=== PATIENT | female | born 1995 | race Caucasian/White ===

== ENCOUNTER → 2017-01-05 | Outpatient (REF) | payer BC ==
[~2017-01-05] MED LIST: /PANT40TA; KARIVA; MIRCETTE PO
== END ==
LOC: M SFHCWAGY 11:30
PROVIDERS: ATTEND Nurse Practitioner Women's Health
DX: Z12.4 Encounter for screening for malignant neoplasm of cervix (principal)

== ENCOUNTER → 2017-02-23 | Outpatient (REF) | payer BC | LOC: M LAB REF 12:17 | PROVIDERS: ATTEND Physician Assistant | DX: N39.0 Urinary tract infection, site not specified (principal) ==

== ENCOUNTER → 2018-04-16 | Outpatient (REF) | payer BC | LOC: M SFHCWAGY 08:52 | DX: Z12.4 Encounter for screening for malignant neoplasm of cervix (principal) | CPT/HCPCS: G0123 ==

== ENCOUNTER → 2019-03-13 | Outpatient (CLI) | payer BC ==
[~2019-03-13] MED LIST changes: -/PANT40TA; +PROT1TAB2
[2019-03-13 13:27] LABS: BASO % 0.4 % (0.0-1.0); EOS # 0.1 10^3/uL (0.0-0.50); EOS % 1.2 % (0.0-3.0); LYMPH # 1.5 10^3/uL (1.5-6.5); LYMPH % 19.6 % (24.0-44.0); MEAN CORPUSCULAR HGB CONC 32.5 g/dl (32.0-36.5); MEAN CORPUSCULAR VOLUME 92.2 fl (80.0-96.0); MONO # 0.5 10^3/uL (0.0-0.8); MONO % 6.5 % (0.0-5.0); NEUTROPHILS # 5.5 10^3/uL (1.8-7.7); NEUTROPHILS % 71.9 % (36.0-66.0); PLATELET COUNT, AUTOMATED 207 10^3/uL (150-450); RED BLOOD COUNT 4.34 10^6/uL (4.00-5.40); WHITE BLOOD COUNT 7.7 10^3/uL (4.0-10.0)
[2019-03-13 13:38] LABS: ALBUMIN 3.3 GM/DL (3.2-5.2); ALT/SGPT 18 U/L (12-78); BILIRUBIN,TOTAL 0.1 MG/DL (0.2-1.0); BLOOD UREA NITROGEN 10 MG/DL (7-18); CALCIUM LEVEL 9.1 MG/DL (8.5-10.1); CARBON DIOXIDE LEVEL 24 MEQ/L (21-32); CHLORIDE LEVEL 109 MEQ/L (98-107); CREATININE FOR GFR 0.75 MG/DL (0.55-1.30); FREE T4 0.93 NG/DL (0.76-1.46); GLOMERULAR FILTRATION RATE > 60.0 (>60); GLUCOSE, FASTING 88 MG/DL (70-100); POTASSIUM SERUM 3.9 MEQ/L (3.5-5.1); SODIUM LEVEL 141 MEQ/L (136-145); TOTAL PROTEIN 6.6 GM/DL (6.4-8.2)
[2019-03-15 00:08] LABS: EBV VIRAL CAPSID AG IgG 55.3 U/mL (0.0-17.9); EBV VIRAL CAPSID AG IgM <36.0 U/mL (0.0-35.9)
== END ==
LOC: M WUC 10:59
PROVIDERS: ATTEND Physician Assistant
DX: R53.83 Other fatigue (principal)

== ENCOUNTER → 2019-03-29 | Outpatient (CLI) | payer BC ==
[2019-03-29 08:06] LABS: HEMOGLOBIN 13.9 g/dl (12.0-15.5); MEAN CORPUSCULAR HEMOGLOBIN 30.1 pg (27.0-33.0); MEAN CORPUSCULAR HGB CONC 33.1 g/dl (32.0-36.5); MEAN CORPUSCULAR VOLUME 90.9 fl (80.0-96.0); PLATELET COUNT, AUTOMATED 211 10^3/uL (150-450); RED BLOOD COUNT 4.62 10^6/uL (4.00-5.40); WHITE BLOOD COUNT 5.6 10^3/uL (4.0-10.0)
--- NOTE | 2019-03-29 08:18 | REP ---
Clinical: Chest pain with anemia and fatigue . Comparison: None . Technique: PA and lateral. Findings: The mediastinum and cardiac silhouette are normal. The lung cotto are clear and without acute consolidation, effusion, or pneumothorax. The skeletal structures are intact and normal. Impression: 1. No acute cardiopulmonary process. Electronically Signed by Flaco Bird MD 03/29/2019 08:10 A
[2019-03-29 08:46] LABS: ALBUMIN 3.3 GM/DL (3.2-5.2); ALT/SGPT 23 U/L (12-78); BILIRUBIN,TOTAL 0.3 MG/DL (0.2-1.0); BLOOD UREA NITROGEN 12 MG/DL (7-18); CALCIUM LEVEL 9.3 MG/DL (8.5-10.1); CARBON DIOXIDE LEVEL 27 MEQ/L (21-32); CHLORIDE LEVEL 106 MEQ/L (98-107); CHOLESTEROL LEVEL 168 MG/DL (<200); CHOLESTEROL RISK RATIO 3.169 (<5); CREATININE FOR GFR 0.76 MG/DL (0.55-1.30); GLOMERULAR FILTRATION RATE > 60.0 (>60); GLUCOSE, FASTING 85 MG/DL (70-100); HDL CHOLESTEROL 53 MG/DL (>40); LDL CHOLESTEROL 70 MG/DL (<100); NON-HDL-C 115 MG/DL; POTASSIUM SERUM 4.4 MEQ/L (3.5-5.1); SODIUM LEVEL 139 MEQ/L (136-145); TOTAL PROTEIN 6.6 GM/DL (6.4-8.2); TRIGLYCERIDES LEVEL 227 MG/DL (<150)
[2019-03-29 09:57] LABS: HEMOGLOBIN A1c 4.8 %
[2019-03-29 11:17] LABS: TOTAL 25(OH) VITAMIN D 34.7 NG/ML (30.0-100.0)
[2019-03-29 11:18] LABS: TOTAL T3 182.7 NG/DL (60.0-181.0)
--- NOTE | 2019-03-29 19:20 | ECGEPIP ---
[facility] Test Date: 2019-03-29 Pat Name: SAMMY PELAYO Department: Room: - Gender: Female [employer]: EL : 1995 Requested By: Anita Carranza Order Number: [id number] Reading MD: Jonathan Kauffman Measurements Intervals [place] Rate: 84 P: 4 KS: 154 QRS: 52 QRSD: 97 T: 30 QT: 351 QTc: 415 Interpretive Statements SINUS RHYTHM WITH SINUS ARRHYTHMIA Within normal limits Electronically Signed on 03-29-2019 19:20:29 EDT by Jonathan Kauffman
== END ==
LOC: M LAB 07:22
PROVIDERS: ATTEND Family Medicine
DX: R53.83 Other fatigue (principal); D64.9 Anemia, unspecified; E03.9 Hypothyroidism, unspecified

== ENCOUNTER → 2019-04-30 | Outpatient (REF) | payer BC | LOC: M LAB REF 15:03 | PROVIDERS: ATTEND Nurse Practitioner Family | DX: J02.9 Acute pharyngitis, unspecified (principal) ==

== ENCOUNTER → 2019-05-15 | Outpatient (CLI) | payer BC ==
--- NOTE | 2019-05-15 18:22 | REP ---
Clinical: Pelvic pain. Technique: Transabdominal pelvic ultrasound followed by transvaginal examination for better evaluation of the endometrium and adnexa with color Doppler evaluation of the ovaries. Findings: Bladder is unremarkable and measures 8.9 x 9.0 x 5.3 cm. Normal retroflexed uterus measures 6.9 x 2.6 x 3.7 cm. Endometrial complex measures 4 mm thickness. No discrete uterine or endometrial abnormalities appreciated. Trace fluid in the endocervical canal is nonspecific and likely physiologic. Bilateral ovaries are normal in appearance and echogenicity without torsion. Right ovary measures 3.2 x 1.4 x 1.6 cm (RI 0.53). Left ovary measures 3.9 x 1.5 x 1.8 cm (RI 0.58). Small amount of free fluid in the pelvis likely physiologic. Impression: Essentially normal pelvic ultrasound. Electronically Signed by Flaco Bird MD 05/15/2019 06:14 P
== END ==
LOC: M RAD 15:29
PROVIDERS: ATTEND Nurse Practitioner Women's Health
DX: R10.2 Pelvic and perineal pain (principal); Z87.42 Personal history of other diseases of the female genital tract

== ENCOUNTER → 2020-03-26 | Outpatient (CLI) | payer BC ==
[2020-03-26 12:55] LABS: HEMATOCRIT 40.6 % (36.0-47.0); HEMOGLOBIN 13.7 g/dl (12.0-15.5); MEAN CORPUSCULAR HEMOGLOBIN 30.2 pg (27.0-33.0); MEAN CORPUSCULAR HGB CONC 33.7 g/dl (32.0-36.5); MEAN CORPUSCULAR VOLUME 89.4 fl (80.0-96.0); PLATELET COUNT, AUTOMATED 222 10^3/uL (150-450); RED BLOOD COUNT 4.54 10^6/uL (4.00-5.40); WHITE BLOOD COUNT 7.8 10^3/uL (4.0-10.0)
[2020-03-26 13:08] LABS: PROTHROMBIN TIME 13.4 SECONDS (11.8-14.0)
[2020-03-26 13:24] LABS: ERYTHROCYTE SEDIMENTATION RATE 4 mm/hr (0-20)
[2020-03-26 13:43] LABS: ALT/SGPT 26 U/L (12-78); BLOOD UREA NITROGEN 11 MG/DL (7-18); CALCIUM LEVEL 9.5 MG/DL (8.5-10.1); CARBON DIOXIDE LEVEL 25 MEQ/L (21-32); CHLORIDE LEVEL 106 MEQ/L (98-107); CREATININE FOR GFR 0.78 MG/DL (0.55-1.30); GLOMERULAR FILTRATION RATE > 60.0 (>60); GLUCOSE, FASTING 77 MG/DL (70-100); POTASSIUM SERUM 4.3 MEQ/L (3.5-5.1); SODIUM LEVEL 138 MEQ/L (136-145)
[2020-03-26 13:44] LABS: ALBUMIN 3.5 GM/DL (3.2-5.2); BILIRUBIN,TOTAL 0.4 MG/DL (0.2-1.0); CHOLESTEROL LEVEL 157 MG/DL (<200); HDL CHOLESTEROL 48 MG/DL (>40); LDL CHOLESTEROL 71 MG/DL (<100); NON-HDL-C 109 MG/DL; RHEUMATOID FACTOR QUANT < 10.0 IU/ML (<15.0); THYROXINE (T4) 13.8 UG/DL (4.5-12.0); TOTAL 25(OH) VITAMIN D 42.3 NG/ML (30.0-100.0); TOTAL PROTEIN 7.2 GM/DL (6.4-8.2); TOTAL T3 184.2 NG/DL (60.0-181.0); TRIGLYCERIDES LEVEL 190 MG/DL (<150)
[2020-03-26 18:02] LABS: HEMOGLOBIN A1c 5.2 %
[2020-03-27 14:11] LABS: Lyme Disease IgG/IgM Antibodie <0.91 ISR (0.00-0.90); Lyme Disease IgM Ab Quantitati <0.80 index (0.00-0.79)
== END ==
LOC: M LAB 11:58
PROVIDERS: ATTEND Family Medicine
DX: D64.9 Anemia, unspecified (principal); R53.83 Other fatigue; E03.9 Hypothyroidism, unspecified

== ENCOUNTER 2021-07-30 20:38 | Emergency (ER) | payer BC ==
[~2021-07-30] VITALS: Ht 157.5 cm; Wt 90.9 kg
[2021-07-30 20:43] VITALS: BP 124/65
== END 2021-07-31 05:07 | disposition left against medical advice (07) ==
LOC: M ED 20:38
DX: Z53.29 Procedure and treatment not carried out because of patient's decision for other reasons (principal)

== ENCOUNTER → 2021-11-29 | Outpatient (REF) | payer BC | LOC: M PLALAB 10:12 | PROVIDERS: ATTEND Advanced Practice Midwife | DX: Z12.4 Encounter for screening for malignant neoplasm of cervix (principal); R87.610 Atypical squamous cells of undetermined significance on cytologic smear of cervix (ASC-US) | CPT/HCPCS: 87624; G0123 ==

== ENCOUNTER → 2021-11-29 | Outpatient (CLI) | payer BC | LOC: M PLALAB 11:09 | PROVIDERS: ATTEND Advanced Practice Midwife | DX: Z84.81 Family history of carrier of genetic disease (principal) ==

== ENCOUNTER → 2022-01-22 | Outpatient (REF) | payer BC | LOC: M WUC 18:15 | PROVIDERS: ATTEND Physician Assistant | DX: J04.0 Acute laryngitis (principal) ==

== ENCOUNTER → 2024-10-21 | Outpatient (CLI) | payer BC ==
[2024-10-21 11:07] LABS: HEMATOCRIT 41.1 % (36.0-47.0); HEMOGLOBIN 13.8 g/dl (12.0-15.5); MEAN CORPUSCULAR HEMOGLOBIN 29.7 pg (27.0-33.0); MEAN CORPUSCULAR HGB CONC 33.6 g/dl (32.0-36.5); MEAN CORPUSCULAR VOLUME 88.4 fl (80.0-96.0); PLATELET COUNT, AUTOMATED 267 10^3/uL (150-450); RED BLOOD COUNT 4.65 10^6/uL (4.00-5.40); WHITE BLOOD COUNT 7.8 10^3/uL (4.0-10.0)
[2024-10-21 11:21] LABS: HEMOGLOBIN A1c 4.8 % (4.0-6.0)
[2024-10-21 11:44] LABS: THYROID STIMULATING HORMONE 2.418 uIU/ML (0.55-4.78)
[2024-10-21 11:45] LABS: ALBUMIN 3.2 G/DL (3.2-5.2); ALKALINE PHOSPHATASE 82 U/L (35-104); ALT/SGPT 30 U/L (7.0-40); AST/SGOT 26 U/L (<34); BILIRUBIN,TOTAL 0.3 MG/DL (0.3-1.2); BLOOD UREA NITROGEN 11 MG/DL (9-23); CALCIUM LEVEL 9.2 MG/DL (8.5-10.1); CARBON DIOXIDE LEVEL 21 MMOL/L (20-31); CHLORIDE LEVEL 111 MMOL/L (98-107); CHOLESTEROL LEVEL 156 MG/DL (<200); CHOLESTEROL RISK RATIO 4.23 (<5); CREATININE FOR GFR 0.74 MG/DL (0.55-1.30); GLOMERULAR FILTRATION RATE > 60.0 (>60); GLUCOSE, FASTING 88 MG/DL (60-100); HDL CHOLESTEROL 36.8 MG/DL (>40); LDL CHOLESTEROL 77.6 MG/DL (<100); NON-HDL-C 119.2 MG/DL; POTASSIUM SERUM 4.5 MMOL/L (3.5-5.1); SODIUM LEVEL 139 MMOL/L (136-145); TOTAL PROTEIN 6.6 G/DL (5.7-8.2); TRIGLYCERIDES LEVEL 208 MG/DL (<150)
[2024-10-21 11:47] LABS: TOTAL 25(OH) VITAMIN D 60.7 NG/ML (20.0-100.0)
== END ==
LOC: M RAD 10:13
PROVIDERS: ATTEND Family Medicine
DX: M54.30 Sciatica, unspecified side (principal); R53.83 Other fatigue; E03.9 Hypothyroidism, unspecified; I10 Essential (primary) hypertension

== ENCOUNTER → 2024-10-29 | Outpatient (REF) | payer BC | LOC: M SFHCWAGY 14:54 | PROVIDERS: ATTEND Advanced Practice Midwife | DX: Z12.4 Encounter for screening for malignant neoplasm of cervix (principal); R87.615 Unsatisfactory cytologic smear of cervix | CPT/HCPCS: 87624; G0123 ==

== ENCOUNTER → 2025-03-05 | Outpatient (CLI) | payer BC ==
[2025-03-05 14:46] LABS: CHOLESTEROL LEVEL 150.0 MG/DL (<200); CHOLESTEROL RISK RATIO 3.59 (<5); LDL CHOLESTEROL 70.1 MG/DL (<100); NON-HDL-C 108.3 MG/DL; TRIGLYCERIDES LEVEL 191.0 MG/DL (<150)
[2025-03-09 00:22] LABS: ANTI THROMBIN 3 FUNCT ACTIVITY 116 % normal (80-135); PROTEIN C FUNCTIONAL ACTIVITY 136 % normal (70-180); PROTEIN S FUNCTIONAL ACTIVITY 125 % normal (60-140)
[2025-03-12 00:32] LABS: Anticardiolipin Ab, IGG < 2.0 GPL-U/mL (<20.0); Anticardiolipin Ab, IGM < 2.0 MPL-U/mL (<20.0); Anticardiolipin Ab, IgA 2.0 APL-U/mL (<20.0); Beta-2 GLYCOPROTEIN I, IGG < 2.0 U/mL (<20.0); Beta-2 Glycoprotein I, IGA < 2.0 U/mL (<20.0); Beta-2 Glycoprotein I, IGM < 2.0 U/mL (<20.0)
[2025-03-13 08:32] LABS: APTT APSCOMP 46 sec (<=40); DRVTT Screen Seconds 58 sec (<=45)
[2025-03-13 20:01] LABS: FACTOR V LEIDEN FOR MEDINET NEGATIVE
== END ==
LOC: M WUC 11:27
PROVIDERS: ATTEND Internal Medicine
DX: I82.622 Acute embolism and thrombosis of deep veins of left upper extremity (principal); E66.01 Morbid (severe) obesity due to excess calories

== ENCOUNTER → 2025-03-26 | Outpatient (POV) | payer BC | LOC: M IRPOV 14:29 | PROVIDERS: ATTEND Registered Nurse School | DX: I82.B12 Acute embolism and thrombosis of left subclavian vein (principal); Z79.01 Long term (current) use of anticoagulants ==

== ENCOUNTER → 2025-04-08 | Outpatient (CLI) | payer BC ==
[~2025-04-08] MED LIST changes: +ISOVUE-370 76% 100 ML VIAL As Ordered ONE
== END ==
LOC: M RAD 07:51
PROVIDERS: ATTEND Radiology Diagnostic Radiology
DX: G54.0 Brachial plexus disorders (principal)

== ENCOUNTER → 2025-04-16 | Outpatient (POV) | payer BC ==
[~2025-04-16] VITALS: Ht 157.5 cm; Wt 97.7 kg
[~2025-04-16] MED LIST changes: +ELIQ5TAB PO; -ISOVUE-370 76% 100 ML VIAL As Ordered ONE; +PHEN15CA6 PO
[2025-04-16 08:30] VITALS: BP 108/62; O2SAT 98
== END ==
LOC: M IRPOV 07:57
PROVIDERS: ATTEND Thoracic Surgery (Cardiothoracic Vascular Surgery)
DX: G54.0 Brachial plexus disorders (principal); Z79.01 Long term (current) use of anticoagulants

== ENCOUNTER 2025-06-02 12:38 | Emergency (ER) | payer BC ==
[~2025-06-02] VITALS: Ht 157.5 cm; Wt 93.6 kg
[2025-06-02 12:43] VITALS: BP 121/74; O2SAT 99
[2025-06-02] MEDS ORDERED: DEBL1TAB (13:02)
[2025-06-02 17:33] LABS: BASO # 0.0 10^3/uL (0.0-0.2); BASO % 0.4 % (0.0-1.0); EOS # 0.1 10^3/uL (0.0-0.5); EOS % 1.4 % (0.0-3.0); LYMPH # 2.4 10^3/uL (1.5-5.0); LYMPH % 27.9 % (24.0-44.0); MONO # 0.6 10^3/uL (0.0-0.8); MONO % 7.5 % (2.0-8.0); NEUTROPHILS # 5.4 10^3/uL (1.5-8.5); NEUTROPHILS % 62.6 % (36.0-66.0); PLATELET COUNT, AUTOMATED 257 10^3/uL (150-450)
[2025-06-02 18:06] LABS: ALT/SGPT 44 U/L (7.0-40); AST/SGOT 31 U/L (<34); CALCIUM LEVEL 9.4 MG/DL (8.5-10.1); CARBON DIOXIDE LEVEL 26 MMOL/L (20-31); CHLORIDE LEVEL 104 MMOL/L (98-107); CREATININE FOR GFR 0.84 MG/DL (0.55-1.30); GLOMERULAR FILTRATION RATE > 90.0 (>60); POTASSIUM SERUM 4.0 MMOL/L (3.5-5.1); SODIUM LEVEL 140 MMOL/L (136-145)
[2025-06-02 18:12] LABS: D-DIMER QUANT < 0.27 ug/mL (<0.5); INR 1.10
[2025-06-02 18:30] VITALS: TEMP 97.8
== END 2025-06-02 18:33 | disposition home or self-care (01) ==
LOC: M ED 12:38
DX: M79.622 Pain in left upper arm (principal); Z86.718 Personal history of other venous thrombosis and embolism; Z79.01 Long term (current) use of anticoagulants; Z79.899 Other long term (current) drug therapy
CPT/HCPCS: 80053; 85025; 85379; 85610; 85730; 93971; 99284; G0463

== ENCOUNTER → 2025-06-12 | Outpatient (CLI) | payer BC ==
[~2025-06-12] MED LIST changes: +DEBL1TAB
[2025-06-12] MEDS: NS (Normal Saline) 0.9% 1,000 ML IV SCH ×2 (08:30→08:41)
[2025-06-12] MEDS: HEPARIN 1,000 UNITS/ML 10 ML VIAL (FOR RADIOLOGY & DIALYSIS ONLY) IV PRN (08:35)
[2025-06-12] MEDS: MIDAZOLAM INJ 2 MG/2 ML VIAL IV PRN (08:40)
[2025-06-12] MEDS: LIDOCAINE 1% MDV 20 ML VIAL SC SCH (08:45)
[2025-06-12] MEDS: ISOVUE-300 61% 100 ML VIAL IV SCH (08:45)
[2025-06-12] MEDS: ACETAMINOPHEN 325 MG TAB PO ONE (10:10)
[2025-06-12 10:20] VITALS: BP 124/85; O2SAT 100
== END ==
LOC: M IRPRO 07:20
PROVIDERS: ATTEND Registered Nurse School
DX: G54.0 Brachial plexus disorders (principal)
CPT/HCPCS: 36011; 37248; 75822; 76937; 99152; 99153; J2250; J3010; Q9967

== ENCOUNTER → 2025-06-30 | Outpatient (CLI) | payer BC | LOC: M RAD 15:33 | PROVIDERS: ATTEND Radiology Diagnostic Radiology | DX: I87.1 Compression of vein (principal) ==

== ENCOUNTER → 2025-07-09 | Outpatient (POV) | payer BC | LOC: M IRPOV 13:00 | PROVIDERS: ATTEND Registered Nurse School | DX: Z48.812 Encounter for surgical aftercare following surgery on the circulatory system (principal); Z79.01 Long term (current) use of anticoagulants; Z79.899 Other long term (current) drug therapy; Z80.8 Family history of malignant neoplasm of other organs or systems; Z80.3 Family history of malignant neoplasm of breast; Z80.52 Family history of malignant neoplasm of bladder ==